=== PATIENT | male | born 1985 | race Caucasian/White ===

== ENCOUNTER 2023-11-17 10:34 | Day surgery (SDC) | payer BC ==
[2023-11-17] MEDS ORDERED: fentaNYL 100 MCG/2 ML SDV ONE ×2 (10:54→12:49)
[2023-11-17] MEDS ORDERED: Propofol 200 MG/20 ML SDV ONE (10:54)
[2023-11-17] MEDS ORDERED: dexmedeTOMIDine HCl 200 MCG/2 ML SDV ONE (10:54)
[2023-11-17] MEDS: Lactated Ringers 1,000 ML IV SCH (10:57)
[2023-11-17] MEDS ORDERED: HYDROmorphone 1 MG/ML Syringe IVPUSH PRN (11:01)
[2023-11-17] MEDS ORDERED: droPERidol 5 MG/2 ML SDV IVPUSH PRN (11:01)
[2023-11-17] MEDS ORDERED: Albuterol 0.083% 2.5 MG/3 ML Neb Soln NEB PRN (11:01)
[2023-11-17] MEDS ORDERED: Morphine 2 MG/ML SYRINGE IVPUSH PRN (11:01)
[2023-11-17] MEDS ORDERED: Ondansetron 4 MG/2 ML SDV IVPUSH PRN (11:01)
[2023-11-17] MEDS ORDERED: Naloxone 0.4 MG/ML SDV IVPUSH PRN (11:01)
[2023-11-17] MEDS ORDERED: fentaNYL 50 MCG/ML SDV IVPUSH PRN (11:01)
[2023-11-17] MEDS ORDERED: Metoclopramide 10 MG/2 ML SDV IVPUSH PRN (11:01)
[2023-11-17] MEDS ORDERED: Bupivacaine 0.5%/EPINEPHrine 1:200,000 30 ML SDV ONE (11:35)
[2023-11-17] MEDS ORDERED: ceFAZolin 2 GM in Sodium Chloride 0.9% 50 ML IV ONE (12:00)
[2023-11-17] MEDS ORDERED: Water For Injection, Sterile 20 ML ONE (12:40)
[2023-11-17] MEDS ORDERED: ceFAZolin 1 GM Vial ONE (12:40)
[2023-11-17] MEDS ORDERED: Ondansetron 4 MG/2 ML SDV ONE (12:50)
[2023-11-17] MEDS ORDERED: Dexamethasone 4 MG/ML 5 ML MDV ONE (12:50)
[2023-11-17] MEDS ORDERED: Ketorolac 30 MG/ML SDV ONE (13:00)
== END 2023-11-17 14:38 | disposition home or self-care (01) ==
LOC: MW.SDS 10:34
PROVIDERS: ATTEND Orthopaedic Surgery
DX: S83.241A Other tear of medial meniscus, current injury, right knee, initial encounter (principal); M25.561 Pain in right knee; Z11.3 Encounter for screening for infections with a predominantly sexual mode of transmission; Z79.899 Other long term (current) drug therapy; X58.XXXA Exposure to other specified factors, initial encounter
CPT/HCPCS: 29881; J0690; J1100; J1885; J2405; J2704; J3010; J7120; 01400; J3490